=== PATIENT | female | born 1980 | race Caucasian/White ===

== ENCOUNTER 2016-09-07 11:23 | Observation (INO) ==
[2016-09-07] MEDS ORDERED: *HR* HYDROmorphone (PF) 1 MG/ML SYRINGE IVP PRN ×2 (11:44→22:32)
[2016-09-07] MEDS ORDERED: Ondansetron 4 MG/2 ML VIAL IVP PRN (11:44)
--- NOTE | 2016-09-07 12:14 | OB/GYN History & Physical ---
Date of Encounter: 09/07/16 Time of Encounter: 12:11 Assessment and Plan (1) Torsion of left ovary and ovarian pedicle Current visit: Yes Status: Acute NPO. Labs ordered. Patient is s/p BPS and does not desire future fertility. Informed consent obtained for laparoscopic left oophrectomy. All questions answered. Surgery notified. Patient with last PO intake 0930 today. Will wait 8 hours before proceeding. Patient is resting comfortably at this time. History of Present Illness Chief complaint: LLQ pain HPI: Ms. Chirinos is a 35 year old female with LMP 08/26/2016 presented to office today for annual exam. She complained of LLQ pain that has been present since Monday. She states the pain has been pretty constant and unrelieved by OTC medication. She states the pain is different than the pain she experiences with her endometriosis. She was sent to ultrasound for imaging and left ovarian torsion was confirmed. Past Med Surg Social Fam HX - Past Medical History Source: patient Medical history: migraine, thyroid disease (hypothyroid) - Past Surgical History Surgical History: (with BPS), other (cold knife cone, h/s, laparoscopy , fulgration of endometriosis, tonsillectomy, spetoplasty) - Social History Smoking Status: Never smoker Smokeless Tobacco Status: No Alcohol use: none Drug use: none Occupational status: employed Current living situation: Home Obstetrical History - Pregnancies : 2 Para: 2 Livin Medications and Allergies Ibuprofen 400 mg PO PRN 09/07/16 [History] Levothyroxine Sodium [Synthroid] 137 mcg PO DAILY 09/07/16 [History] Allergies Erythromycin Base Allergy (Mild, Verified 09/07/16 11:53) Rash Review of System OB All systems PM: reviewed and no additional remarkable complaints except as stated - Constitutional Constitutional ROS IM: no daytime sleepiness, no fatigue, no fever(s), no headache(s) - Gastrointestinal Gastrointestinal: abdominal pain, no heartburn, no nausea, no vomiting - Genitourinary Genitourinary: as per HPI, no abnormal menses, no abnormal vaginal bleeding, no flank pain, no genital lesions, no menorrhagia Exam - Vital Signs Vital signs: Initial Vital Signs Temp Pulse Resp BP Pulse Ox 98.0 F 83 16 137/84 99 09/07/16 11:40 09/07/16 11:40 09/07/16 11:40 09/07/16 11:40 09/07/16 11:40 - Constitutional Constitutional: well developed, well nourished, no acute distress, average body habitus - HEENT HEENT: EOMI, Mucus Membranes Moist - Lungs Respiratory exam: CTAB - Cardiovascular Cardiovascular exam: RRR - Abdomen Abdomen: Present: bowel sounds normal. Absent: mass (LLQ tenderness with guarding noted) Abdomen detail: left lower quadrant: tenderness Results All other labs normal. US - abdomen: image reviewed (No arterial or venous flow to left ovary with internal echoes.)
[2016-09-07] MEDS: Ringers Solution, Lactated 1,000 ML IVC SCH ×3 (12:20→23:00)
[2016-09-07 19:08] LABS: Basophils % 0.5 %; Eosinophils % 0.4 %; Hematocrit 44.6 % (35.3-44.9); Hemoglobin 15.3 g/dL (11.5-15.4); Immature Granulocytes % 0.4 % (0-4); Lymphocytes # 1.5 K/mcL (0.6-4.6); Lymphocytes % 26.3 %; Mean Corpuscular HGB Conc 34.3 g/dL (31.6-35.5); Mean Corpuscular Hemoglobin 29.9 pg (28.0-33.3); Mean Corpuscular Volume 87.1 fL (83.0-100.0); Mean Platelet Volume 9.9 fL (9.4-12.4); Monocytes # 0.4 K/mcL (0.0-1.3); Neutrophils # 3.6 K/mcL (1.6-8.9); Platelet Count 284 K/mcL (140-400); Red Blood Count 5.12 M/mcL (3.82-4.97); Red Cell Distribution Width 11.9 % (11.5-14.5); Segmented Neutrophils % 64.4 %
[2016-09-07] MEDS ORDERED: *HR* Midazolam HCl 2 MG/2 ML VIAL ONE (20:44)
[2016-09-07] MEDS ORDERED: *HR* FentaNYL (PF) 100 MCG/2 ML VIAL ONE (20:44)
[2016-09-07] MEDS ORDERED: *HR* Rocuronium Bromide 50 MG/5 ML VIAL ONE (20:44)
[2016-09-07] MEDS ORDERED: Ondansetron 4 MG/2 ML VIAL ONE ×2 (20:44→22:17)
[2016-09-07] MEDS ORDERED: *HR* Propofol 200 MG/20 ML VIAL IVP ONE (20:44)
[2016-09-07] MEDS ORDERED: Dexamethasone 4 MG/ML VIAL ONE (20:44)
[2016-09-07] MEDS ORDERED: Lidocaine -MPF 2% 2 ML VIAL ONE (20:44)
[2016-09-07] MEDS ORDERED: Lidocaine -MPF 4% 5 ML AMPUL ONE (20:44)
[2016-09-07] MEDS ORDERED: Scopolamine Patch 1.5 MG PATCH.TD72 TD ONE (20:55)
[2016-09-07] MEDS ORDERED: Famotidine 20 MG/2 ML VIAL IVP ONE (20:55)
--- NOTE | 2016-09-07 20:58 | Anesthesia Evaluation PreOp ---
Date of Encounter: 09/07/16 Time of Encounter: 21:00 - Past History Planned Operation: Left Oophorectomy Cardiac History: Denies any Significant Hx Pulmonary History: Denies Any Significant HX [employer] History: Denies Any Significant HX Other Medical History: Thyroid (Hyperthyroid) Anesthesia History: No Prior Anesthetic Complications : No Test: Negative Alcohol Use: none Drug use: none Medications and Allergies Ibuprofen 400 mg PO PRN 09/07/16 [History] Levothyroxine Sodium [Synthroid] 137 mcg PO DAILY 09/07/16 [History] Allergies Erythromycin Base Adverse Reaction (Mild, Verified 09/07/16 12:43) Vomiting - Meds/Allergy Pre-op Review Medications Reviewed: Yes Allergies Reviewed: Yes Beta Blockers on Current Med List: No Anesthesia Results - Labs 09/07/16 19:00 Anesthesia Exam O2 Sat Weight 84.368 kg O2 Sat by Pulse Oximetry 99 O2 Sat by Pulse Oximetry 99 Vital Signs Temp Pulse Resp BP Pulse Ox 98.0 F 83 16 137/84 99 09/07/16 11:40 09/07/16 11:40 09/07/16 11:40 09/07/16 11:40 09/07/16 11:40 Height: 5'7 Weight: 186 lbs NPO (# of Hours): MN Pain Scale: 0 - HEENT Pupil (Motor): Pupils equal, EOMI Mallampati: II Teeth: Normal Oral Opening: Greater than 3 - [employer] LOC: Oriented [employer] Motor: Normal RUE, Normal LUE, Normal RLE, Normal LLE, Normal Face [employer] Sensory: Normal: RUE, LUE, RLE, LLE, Face - Cardiac Rhythm: Regular Murmur: None JVD: No Carotid Bruit: No - Pulmonary Breath Sounds: bilateral Clear Respiratory Effort: Symmetrical Anesthesia Assess/Plan ASA Score: 2, E Modified Leola Scale for Level of Consciousness: Cooperative, oriented, and tranquil Anesthetic Plan: General Monitoring Plan: Standard Monitors Recovery Plan: PACU (Discussed GA, agrees to proceed)
[2016-09-07] MEDS ORDERED: Bupivacaine/EPI 1:200k 0.25%PF 10 ML VIAL INFILT ONE (21:03)
[2016-09-07] MEDS ORDERED: Ondansetron 4 MG/2 ML VIAL IVP ONE (21:28)
[2016-09-07] MEDS ORDERED: Ketorolac 30 MG/ML VIAL ONE (21:50)
[2016-09-07] MEDS ORDERED: Neostigmine Methylsulfate 3 MG/3 ML SYRINGE ONE (21:57)
--- NOTE | 2016-09-07 22:25 | Anesthesia Evaluation Post Op ---
Date of Encounter: 09/07/16 Time of Encounter: 22:30 - Vital Signs Vital Signs: Vital Signs/O2 Sat/Glucose, Most Current Temp Pulse Resp BP Pulse Ox 09/07/16 22:19 53 16 128/74 95 09/07/16 22:09 98.1 F 61 14 134/89 96 09/07/16 20:30 98.0 F 85 16 134/69 99 - Lungs Lungs: Clear Ascult./Percussion - Airway Airway: Non-obstructed - Cardiovascular Regular Rate - Mental Status Mental Status: Alert & Oriented, Answers Appropriately - Pain Pain Scale: 0 - Nausea Vomiting Nausea Vomiting: Not Present - Hydration Hydration: Ice chips - Discharge PostOp Status: Transfer Patient to floor
[2016-09-07] MEDS ORDERED: *HR* Promethazine 25 MG/ML VIAL IVP PRN ×2 (22:32→22:38)
[2016-09-07] MEDS ORDERED: *HR* Promethazine 25 MG/ML VIAL ONE (22:35)
[2016-09-07] MEDS ORDERED: *HR* OxyCODONE Immed Rel 5 MG TABLET PO ONE (22:41)
--- NOTE | 2016-09-07 22:41 | OB/GYN Procedure Note ---
Laparoscopy Procedure - Diagnosis Date of procedure: 09/07/16 Pre-op diagnosis: acute pelvic pain (possible left ovarian torsion) Post-op diagnosis: same - Procedure Laparoscopy procedure: operative laparoscopy, left oophorectomy Surgeon: Traci Loredo Anesthesia provider: Julio Culver Anesthesia Type: General Estimated blood loss (cc): 2 Complications: none Specimens: left ovary Findings: Normal appearing ovaries, left ovarian pedical with congestion Disposition: PACU Narrative: Patient was taken to the operative suite and placed under general anesthesia without difficulty. She was then prepped and draped in the normal sterile fashion in the dorsal lithotomy position. Timeout was then performed. A speculum was placed in the patient's vagina and the anterior lip of the cervix was grasped with a single-tooth tenaculum and uterine manipulator was then placed. Attention is then turned to the patient's abdomen and the infraumbilical area is anesthetized using 0.25% Marcaine with epinephrine and a stab incision is made. Blade less trochar is inserted under direct visualization with the laparoscope. Pneumoperitoneum was then created. Patient was placed in Trendelenburg position. A left pelvic port was then placed under direct visualization as well as a 10 mm suprapubic port. Evaluation of the pelvis revealed a normal appearing uterus with normal right ovary and evidence of prior salpingectomy partial. The left ovary also appears normal however the left ovarian pedicle appears edematous. The ureter is identified on the left side well free of the transection point of the infundibulopelvic ligament. The LigaSure device was used to coagulate and transect the IP ligament and free the ovary. The ovary is then placed in an Endo Catch bag and removed from the abdomen. Hemostasis is assured at the dissection point. Evaluation of the cul-de -sacs does not reveal any evidence of current active endometriosis. The left pelvic and suprapubic ports were then removed under direct visualization and hemostasis is assured. The pneumoperitoneum was allowed to escape. The fascial incision of the larger suprapubic port was reapproximated using 0 Vicryl. The skin at all port sites was then closed using 4-0 Vicryl. All instruments are removed from the patient's vagina. Sponge and needle counts are correct at the end of the procedure. She is taken then to recovery extubated and in stable condition.
--- NOTE | 2016-09-07 22:46 | Discharge Summary ---
Outpatient Proc Discharge Plan - Plan Additional Instructions: DISCHARGE INSTRUCTIONS: LAPAROSCOPY [id number] (Rev. 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 Mehul Rodriguez [address] [place] [address] Toll Free Medications Resume your own medications. A prescription for pain medication may be written before you leave the hospital. Any post-operative pain can be relieved by lbuprofen or Tylenol. Follow the directions on the bottle. Personal Care and Hygiene You may use a sanitary pad for any bleeding you experience. Do not use tampons nor douche. Leave the original Band-Aids on for one (1) day. After that, you may change them and clean the incision with alcohol. You may take a tub bath or shower after 24 hours. Dry your incision thoroughly after bathing. Activity Restrict yourself to light activity on the day of your surgery. You may resume sexual intercourse in no sooner than one (1) week. You may return to work on the day following your surgery if you feel up to it. Thereafter, you may do whatever you feel like doing with the exception of lifting anything over 25 pounds for three (3) weeks following the surgery. Diet Resume your regular diet after surgery. Anesthesia Precaution for General Anesthesia You may be drowsy and lightheaded. May cause a sore throat, jaw discomfort, and/or muscle aches. Arrange for a responsible adult to take you home from the hospital and stay with you for 24 hours. Do not operate a vehicle, machinery, power tools, or make any important decisions for 24 hours. You Can Expect Vaginal drainage or light spotting for a couple days. Mild abdominal cramping discomfort and tenderness. Chest and shoulder discomfort for 1-2 days. Follow Up Make an appointment in two (2) weeks for a post-operative check up unless previously scheduled. Contact the office if you have any problems after surgery. or . Prescriptions: Oxycodone HCl/Acetaminophen [Percocet 5-325 mg Tablet] 1 each PO Q4H PRN #24 tablet PRN Reason: Pain Home Medications: Ibuprofen 400 mg PO PRN 09/07/16 [History] Levothyroxine Sodium [Synthroid] 137 mcg PO DAILY 09/07/16 [History] Oxycodone HCl/Acetaminophen [Percocet 5-325 mg Tablet] 1 each PO Q4H PRN #24 tablet 09/07/16 [Rx]
[2016-09-07] MEDS ORDERED: Ringers Solution, Lactated 1,000 ML ONE (22:50)
[2016-09-08 00:25] VITALS: BP 121/77
== END 2016-09-08 01:45 | disposition home or self-care (01) ==
LOC: 1NENUOBS
PROVIDERS: ADMIT Obstetrics & Gynecology; ATTEND Obstetrics & Gynecology